=== PATIENT | female | born 1930 | race Caucasian/White ===

== ENCOUNTER 2017-01-31 12:33 | Outpatient (CLI) | payer MEDICARE, OTHER ==
[2016-08-12 13:03] VITALS: BP 79/45
== END 2017-01-31 12:34 ==
LOC: CARD 12:33
PROVIDERS: ATTEND Nurse Practitioner
DX: I35.0 Nonrheumatic aortic (valve) stenosis (principal); I48.2 Chronic atrial fibrillation; E78.00 Pure hypercholesterolemia, unspecified
CPT/HCPCS: G0463

== ENCOUNTER 2017-04-22 13:22 | Outpatient (CLI) | payer MEDICARE, OTHER ==
[2016-08-12 13:03] VITALS: BP 79/45
== END 2017-04-22 13:23 ==
LOC: POD 13:22
PROVIDERS: ATTEND Podiatrist
DX: B35.1 Tinea unguium (principal); M79.674 Pain in right toe(s); M79.675 Pain in left toe(s)
CPT/HCPCS: 11721; G0463